=== PATIENT | male | born 1995 | race Caucasian/White ===

== ENCOUNTER 2022-06-03 08:21 | Emergency (ER) | payer OTHER ==
[~2022-06-03] VITALS: Ht 180.3 cm; Wt 104.3 kg
== END 2022-06-03 12:14 | disposition home or self-care (01) ==
LOC: ER 08:21
DX: N23 Unspecified renal colic (principal); N13.2 Hydronephrosis with renal and ureteral calculous obstruction

== ENCOUNTER 2022-06-07 06:47 | Outpatient (CLI) | payer OTHER | END 2022-06-07 06:48 | disposition home or self-care (01) | LOC: LAB 06:47 | PROVIDERS: ATTEND Emergency Medicine | DX: N23 Unspecified renal colic (principal) ==

== ENCOUNTER 2022-06-09 08:25 | Day surgery (SDC) | payer OTHER | END 2022-06-09 16:55 | disposition home or self-care (01) | LOC: CIR.AMB 08:25 | PROVIDERS: ATTEND Urology | DX: N20.1 Calculus of ureter (principal) ==